=== PATIENT | male | born 1985 ===

== ENCOUNTER 2018-06-21 11:45 | Emergency (ER) | payer BC ==
[2018-06-21 12:09] VITALS: BP 116/68
--- NOTE | 2018-06-21 14:03 | UC ---
Knee Pain HPI - HPI Summary HPI Summary: 32 y/o male presents to the urgent care c/o of Rt knee pain s/p fall while doing exercise at home around 1130am today. Pt reports he was doing exercise with her snow boot and step in a uneven floor and twisted hi ankle and he heard his Rt kneed popped out. He put it back in again. Pain was severe when it happened, but now is getting better 5/10 an dis able to bear weight . Pain is worse with extension. Pt denies any previous injury, or numbness or tingling sensation over the Rt extremity, calf pain, SOB,chest pain,abdominal pain,N/V/D. - History of Current Complaint Chief Complaint: UCLowerExtremity Stated Complaint: LEG INJURY Time Seen by Provider: 06/21/18 14:03 Hx Obtained From: Patient Onset/Duration: Sudden Onset, Lasting Hours - 2 hrs ago, Still Present Severity Initially: Moderate Severity Currently: Moderate Pain Intensity: 7 Pain Scale Used: 0-10 Numeric Character: Sharp Aggravating Factor(s): Movement, Weight Bearing, Stairs Alleviating Factor(s): Rest, Cold Associated Signs And Symptoms: Positive: Swelling - mild on the medail aspect. Negative: Weakness, Numbness, Tingling Able to Bear Weight: Yes - Risk Factors Septic Arthritis Risk Factor: Negative Gout Risk Factor: Negative - Allergies/Home Medications Allergies/Adverse Reactions: Allergies Allergy/AdvReac Type Severity Reaction Status Date / Time No Known Allergies Allergy Verified 11/25/15 21:41 PMH/Surg Hx/FS Hx/Imm Hx Previously Healthy: Yes - Pt denies PMHX - Surgical History Surgical History: None - Family History Known Family History: Positive: None - Pt denies FMHX - Social History Occupation: Employed Full-time Lives: With Family Alcohol Use: Occasionally Substance Use Type: None Smoking Status (MU): Never Smoked Tobacco Review of Systems All Other Systems Reviewed And Are Negative: Yes Constitutional: Positive: Negative Skin: Positive: Negative Eyes: Positive: Negative ENT: Positive: Negative Respiratory: Positive: Negative Cardiovascular: Positive: Negative Gastrointestinal: Positive: Negative Genitourinary: Positive: Negative Motor: Positive: Negative Neurovascular: Positive: Negative Musculoskeletal: Positive: Decreased ROM - Rt knee, Other: - Rt knee pain and mild swelling s/o injury Neurological: Positive: Negative Psychological: Positive: Negative Is Patient Immunocompromised?: No Physical Exam - Summary Physical Exam Summary: Vital Signs Reviewed: Yes General: well developed, well nourished male sitting in the examining table w/o any apparent distress Eyes: Positive: Conjunctiva Clear - PERRLA, EOMI, fundi grossly normal ENT: Positive: Normal ENT inspection, Hearing grossly normal, Pharynx normal, TMs normal Neck: Positive: Supple, Nontender, No Lymphadenopathy Respiratory: Positive: Chest nontender, Lungs clear, Normal breath sounds, No respiratory distress Cardiovascular: Positive: RRR, No Murmur, Pulses Normal, Brisk Capillary Refill Abdomen Description: Positive: Nontender, No Organomegaly, Soft. Negative: CVA Tenderness (R), CVA Tenderness (L) Bowel Sounds: Positive: Present Musculoskeletal: Positive: Strength Intact, No Edema, RT Knee: Pt is able to bear weight and ambulate with limping. No surface trauma, soft tissue swelling , or obvious effusion. No overlying erythema or warmth. The R knee is without obvious asymmetry or deformity when compared with the L knee. Decreased ROM of LF knee due to pain. No tenderness to palpation of the patella, no effusion or ballottement. No tenderness over the infrapatellar tendon. Point tenderness over the medial joint line, No tenderness over the medial or lateral tibial plateaus. No tenderness over the proximal fibular head, No tenderness, fullness or mass of the popliteal fossa. No quadriceps tenderness. No laxity of the ACL. PCL, MCL, or LCL. tendernessover the medial collateral to valgus or varus stress. Negative Yovany/Drawer sign. Negative Telly. Distal motor and neurovascular status intact. Neurological Exam: Normal Psychological Exam: Normal Skin Exam: Normal Triage Information Reviewed: Yes Vital Signs: Initial Vital Signs Temp 98 F 06/21/18 12:07 Pulse 72 06/21/18 12:07 Resp 18 06/21/18 12:07 BP 116/68 06/21/18 12:07 Pulse Ox 100 06/21/18 12:07 Knee Pain Course/Dx - Course Course Of Treatment: 32 y/o male presents to the urgent care c/o of Rt knee pain s/p fall while doing exercise at home around 1130am today. Pt reports he was doing exercise with her snow boot and step in a uneven floor and twisted hi ankle and he heard his Rt kneed popped out. He put it back in again. Pain was severe when it happened, but now is getting better 5/10 an dis able to bear weight . Pain is worse with extension. Pt denies any previous injury, or numbness or tingling sensation over the Rt extremity, calf pain, SOB,chest pain, abdominal pain,N/V/D. Hxobtained. Rt knee X-ray ordered, Impression: joint effusion, no acute fracture observed. Pt most likely with a RT knee Sprain. Pt knee immobilized with DYLON bandage and knee immobilizer. Pt Rx Iburpofen PO to alleviate symptoms. Pt advised RICE, take medication for pain and to f/u with her Orthopedic DR Warner in 2- days for further treatment since possible medial collateral ligament injury. D/C instructionsexplained. Pt understood and agreed and left the clinic ambulating. - Differential Dx/Diagnosis Differential Diagnosis/HQI/PQRI: Contusion, Dislocation, Fracture (Closed), Internal Derangement Of Knee, Patellofemoral Syndrome, Sprain, Strain, Tendonitis Provider Diagnosis: Right knee pain, Right knee sprain Discharge - Sign-Out/Discharge Documenting (check all that apply): Patient Departure - d/c home All imaging exams completed and their final reports reviewed: Yes - Discharge Plan Condition: Stable Disposition: HOME Prescriptions: Ibuprofen TAB* [Motrin TAB* 800 MG] 800 mg PO Q6H PRN #30 tab PRN Reason: Pain Patient Education Materials: Knee Sprain (ED) Referrals: Carlos Cameron MD [Primary Care Provider] - 2 Days Yoshi Warner MD [Medical Doctor] - 2 Days Additional Instructions: 1-Please take medications as directed to alleviate pain and swelling. 2-Please apply ice, keep your knee immobilized with the splint. Avoid weight bearing by using the crutches. Please elevate your knee 3- Please f/u with Orthopedic Dr Warner in 2-3 days for further evaluation and treatment. - Billing Disposition and Condition Condition: STABLE Disposition: Home
[2018-06-21] MEDS ORDERED: Ibuprofen TAB* 400 MG PO ONE (14:30)
== END 2018-06-21 14:55 | disposition home or self-care (01) ==
LOC: UCEAST 11:45
DX: S83.91XA Sprain of unspecified site of right knee, initial encounter (principal); M25.561 Pain in right knee; W19.XXXA Unspecified fall, initial encounter; Y93.B9 Activity, other involving muscle strengthening exercises; Y92.009 Unspecified place in unspecified non-institutional (private) residence as the place of occurrence of the external cause
CPT/HCPCS: 99213; A9270-GY; G0463